=== PATIENT | female | born 1995 | race Caucasian/White ===

== ENCOUNTER 2016-08-21 09:57 | Emergency (ER) | payer BC, OTHER ==
[~2016-08-21] VITALS: Ht 160 cm; Wt 66.1 kg
[2016-08-21 10:15] VITALS: BP 116/66; PULSE 66; RESP 20; TEMP 98.2; O2SAT 99
--- NOTE | 2016-08-21 10:55 | PD ---
HPI Chief Complaint: Back/ Neck Pain or Injury Time Seen by Provider: 10:41 Travel History International Travel<30 days: No Contact w/Intl Traveler<30days: No Traveled to known affect area: No History of Present Illness HPI This 20-year-old female is complaining of low back pain. She says she's been having back pain off and on since before . 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 She woke up in severe pain this morning. She's been taking Tylenol without much relief. She has also been taking ibuprofen sporadically. There is no history of trauma. There is been no numbness or tingling. She says there is no chance of PFSH Past Medical History ?: Not LMP: 08/19/16 Social History Alcohol Use: No Tobacco Use: Yes (1/2PPD) Substance Use: Yes (MARIJUANA) Allergies-Medications (Allergen,Severity, Reaction): Coded Allergies: No Known Allergies (Unverified , 08/21/16) Reported Meds & Prescriptions Reported Meds & Active Scripts Active No Active Prescriptions or Reported Medications Review of Systems General / Constitutional: No: Fever, Chills Eyes: No: Diploplia HENT: No: Headaches, Vertigo Cardiovascular: No: Chest Pain or Discomfort, Palpitations Respiratory: No: Cough, Shortness of Breath Gastrointestinal: No: Nausea, Vomiting Genitourinary: No: Urgency, Frequency Musculoskeletal: No: Myalgias Skin: No Rash, No Itching Neurologic: No: Weakness Physical Exam Narrative GENERAL: Well-developed female SKIN: Focused skin assessment warm/dry. HEAD: Atraumatic. Normocephalic. EYES: Pupils equal and round. No scleral icterus. No injection or drainage. ENT: No nasal bleeding or discharge. Mucous membranes pink and moist. NECK: Trachea midline. No JVD. GASTROINTESTINAL: Abdomen soft, non-tender, nondistended. Hepatic and splenic margins not palpable. MUSCULOSKELETAL: No obvious deformities. No clubbing. No cyanosis. No edema. There is some tenderness of the lower back. Straight leg raising is nonpainful bilaterally. There is good strength in plantar and dorsiflexion of both feet. NEUROLOGICAL: Awake and alert. No obvious cranial nerve deficits. Motor grossly within normal limits. Normal speech. PSYCHIATRIC: Appropriate mood and affect; insight and judgment normal. Data Data Last Documented VS Vital Signs Date Time Temp Pulse Resp B/P Pulse Ox O2 Delivery O2 Flow Rate FiO2 08/21/16 10:15 98.2 66 20 116/66 99 Orders Spine, Lumbar - Ltd (Ap & Lat) (08/21/16 10:49) MDM Medical Decision Making Medical Screen Exam Complete: Yes Emergency Medical Condition: Yes Medical Record Reviewed: Yes Differential Diagnosis Differential includes lumbar strain, herniated disc, back pain Narrative Course There are no neurologic deficits. X-ray of the back is negative. She'll be released with prescription for Flexeril and Lortab Diagnosis Primary Impression: Back pain Qualified Code: M54.5 - Acute midline low back pain without sciatica Scripts Hydrocodone-Acetaminophen (Lortab)5-325 Mg Tab1-2 Tab PO Q6H PRN (PAIN) #20 TAB Ref 0 Prov:Shravan Cruz MD 08/21/16 Cyclobenzaprine (Flexeril)10 Mg Tab10 Mg PO TID #30 TAB Ref 0 Prov:Shravan Cruz MD 08/21/16 Disposition: 01 DISCHARGE HOME Condition: Stable Shravan Cruz MD Aug 21, 2016 10:55
--- NOTE | 2016-08-21 11:27 | RADHPO ---
EXAM DATE/TIME: 08/21/2016 11:07 [facility] COMPARISON: No previous studies available for comparison. INDICATIONS : Low back pain with no known injury for approximately 5 monnths became worse over the last two weeks. MEDICAL HISTORY : None. SURGICAL HISTORY : None. ENCOUNTER: Initial ACUITY: 4 - 6 months PAIN SCORE: 8/10 LOCATION: lumbar spine FINDINGS: Two view examination was performed. There are five non-rib bearing vertebral bodies. The vertebral bodies are in normal alignment without evidence of subluxation or scoliosis. The disc spaces are palma ntained. The pedicles are intact. Bony mineralization is normal. No fracture is identified. CONCLUSION: Unremarkable limited examination of the lumbar spine. Dionicio Galvez MD on August 21, 2016 at 11:25 Board Certified Radiologist. This report was verified electronically.
[2016-08-21] MEDS ORDERED: HYDR-3533 PO (11:49)
[2016-08-21] MEDS ORDERED: CYCL1TAB29 PO (11:49)
== END 2016-08-21 12:06 | disposition home or self-care (01) ==
LOC: PHED 09:57
DX: M54.5 Low back pain (principal); F17.210 Nicotine dependence, cigarettes, uncomplicated; F12.10 Cannabis abuse, uncomplicated
CPT/HCPCS: 72100; 99283